=== PATIENT | male | born 1940 | race Caucasian/White ===

== ENCOUNTER 2017-03-12 06:46 | Inpatient (IN) ==
--- NOTE | 2017-03-07 14:08 | EKG Report ---
Stationary ECG Study [facility] Test Date: 03/07/2017 2:07:44 PM Pat Name: HANNAH BAIRD Department: Room: Gender: M Time Broker: SANDEEP 03-12-17 : 1940 Requested by: Zen Salazar Order Number: [id number] Reading MD: DARRIUS HENDRICKS Intervals [place] Rate: 63 P: 73 MA: 192 QRS: 73 QRSD: 91 T: 96 QT: 412 QTc: 419 Interpretive Statements SINUS RHYTHM WITH SINUS ARRHYTHMIA at 63 bpm LEFT VENTRICULAR HYPERTROPHY AND ST-T CHANGE Electronically Signed On 03-07-17 15:38:52 CDT by DARRIUS HENDRICKS [email or web address]
[2017-03-07 14:38] LABS: Basophils # 0.1 10*3/uL (0.0-0.2); Basophils % 0.7 % (0.0-0.8); Eosinophils # 0.1 10*3/uL (0.0-0.87); Eosinophils % 1.1 % (0.00-10.9); Hematocrit 40.9 VOL% (42.0-52.0); Hemoglobin 14.6 GM/DL (14.0-18.0); Immature Granulocytes % 0.3 %; Immature Granulocytes Absolute 0.03 #; Lymphocytes # 2.3 10*3/uL (1.4-4.0); Lymphocytes % 26.2 % (21.2-54.2); Mean Corpuscular HGB Conc 35.7 GM/DL (32-36); Mean Corpuscular Hemoglobin 32 PG (27-34); Mean Corpuscular Volume 90.5 FL (87-102); Mean Platelet Volume 9.6 FL (9.6-12.0); Monocytes # 0.8 10*3/uL (0.11-0.8); Monocytes % 9.1 % (1.7-12.7); Neutrophils # 5.5 10*3/uL (1.4-7.4); Neutrophils % 62.6 % (38.7-73.9); Platelet Count 216 T/CUMM (130-400); Red Blood Count 4.52 MC/CUMM (3.8-5.5); Red Cell Distribution Width 12.9 % (9.3-17.3); White Blood Count 8.8 T/CUMM (4-12)
[2017-03-07 15:09] LABS: Albumin 3.6 G/DL (3.4-5.0); Bilirubin,Total 0.4 MG/DL (0.2-1.0); Calcium 8.3 MG/DL (8.5-10.1); Osmolality,Calculated 287.8 MOS/KG (273-304); Potassium 3.5 MMOL/L (3.5-5.1); Total Protein 7.1 G/DL (6.4-8.3)
[~2017-03-12 06:46] MED LIST: HEPARIN 5,000 UNIT/1 ML VIAL ONE; SODIUM CHLORIDE 0.9% 100 ML IV ONE; TISSUE ADHESIVE 1 EACH APPLICATOR TOP ONE; VANCOMYCIN 500 MG VIAL ONE; ceFAZolin 1,000 MG VIAL ONE
[2017-03-12] MEDS: LACTATED RINGERS 1,000 ML IV SCH ×3 (07:48→14:03)
--- NOTE | 2017-03-12 08:14 | History and Physical Update ---
History and Physical Update - History and Physical H&P was reviewed, the patient examined and there: are no changes in the patients condition since last H&P was completed.
--- NOTE | 2017-03-12 09:04 | Cardiology Consult Note ---
Assessment and Plan (1) Preop cardiovascular exam Status: Acute Assessment and plan: 1. 76-year-old WM smoker (about 30 pack per day) with controlled hypertension and dyslipidemia (last LDL in the 50s October 2016), probable remote stroke ( poorly findings on CT brain in 2009 at the time of his left CVA in [place] by Dr. Alonso). He has had clear progression of his right carotid disease with 80 -99% stenosis on recent carotid Dopplers in the clinic and confirm severe disease on CTA. 2. We discussed his absolute need to stop all smoking semi-he has declined smoking cessation aids in the past. 3. History of low risk myocardial scan less than 4 years ago in the hospital when he was having chest pain; is not having angina at this time. 4. He is at moderate risk for cardiovascular complications in the perioperative period. However he is on antiplatelet therapy with baby aspirin as well as high intensity statin with LDL in the 50s. So he is on good medical therapy and is clinically stable from a cardiovascular standpoint. Given the critical stenosis in his carotid as well as his history of CVA, bleed would be important to proceed with correction of this with endarterectomy. 5. We will follow with you postoperatively. Current Visit: Yes (2) Carotid arterial disease Status: Acute Current Visit: Yes History of Present Illness - Consult Narrative History of present illness: Mr. Galaviz is a 76 year old male who I have followed since last fall and has significant carotid artery disease. He is status post left CVA about [address] Alonso. At that time he was told he had some evidence on his CAT scan of the brain that he had "an old stroke". He has had some "droop face " at times in the past. He is not having any chest discomfort at this time. He believes he can walk a mile if he takes his time. His dyspnea has not changed. He continues to smoke nearly half a pack a day. He is not having any presyncope or syncope. He does have occasional spontaneous dizziness of uncertain etiology. It occurs at rest is not severe. CC: Aaron Alejandra MD - Home Medications and Allergies Home Medications: Home Medications Medication Instructions Recorded Confirmed Type Aspirin/Caffeine [Bc Powder Packet] 1 each PO TID 03/07/17 03/12/17 History Atorvastatin [Lipitor] 40 mg PO DAILY 03/07/17 03/12/17 History Lisinopril 10 mg PO DAILY 03/07/17 03/12/17 History Omeprazole 20 mg PO DAILY 03/07/17 03/12/17 History Ubidecarenone [Co Q-10] 2 tablet PO DAILY 03/07/17 03/12/17 History Allergies/Adverse Reactions: Allergies Allergy/AdvReac Type Severity Reaction Status Date / Time No Known Allergies Allergy Verified 03/12/17 07:16 Medical,Surgical,& Family Hx - Medical History Cardio: History of: Hypertension, Cardiovascular Problems (DR HENDRICKS.LAST VISIT 11/2016.) Neurology: History of: TIA No history of: Seizures HEENT: History of: Ear Problem (UGASHIK), Eye Problem (GLASSES), Dental Problems ( CAPPED TEETH) Endocrine: History of: Dyslipidemia Respiratory: History of: COPD (NO INHALERS.) No history of: Respiratory Problems (FLU VAC-YES; PNEU VAC- YES.) Gastrointestinal: History of: GERD Other: History of: Anesthesia Reactions (PT STATES HE WAS HARD TO WAKE UP AFTER LEFT CAROTID SURGERY. ), Cancer (SKIN CA) - Surgical History Cardiac Surgeries: Sugical HX of: Cardiac Catheterization, Carotid Endarterectomy (LEFT CAROTID.) HEENT Surgeries: Surgical HX of: Carotid Endarterectomy (LEFT CAROTID.), Eye Surgery (BILATERAL CATARACT SX.), Tonsilectomy & Adenoidectomy Abdominal Surgeries: Surgical HX of: Colonoscopy - Social History Smoking Status: Current every day smoker Frequency of Alcohol Use: None Type of Drug Use: None Physical Examination Vital Signs Temp Pulse Resp BP Pulse Ox 97.3 F L 52 L 20 179/87 98 03/12/17 07:23 03/12/17 07:23 03/12/17 07:23 03/12/17 07:23 03/12/17 07:23 General: Present: Appears Well, No Apparent Distress Neck: Present: Supple Neck, No JVD/HJR, Bruit Cardiac: Present: Regular Rhythm. Absent: Diastolic Murmur, Gallop Lungs: Present: Scattered Rhonchi, No Wheezes, No Rales Neuro: Absent: Resting Tremor Abdomen: Present: Soft, Non-Tender Extremities: Absent: Edema Result/EKG - Labs CBC & BMP: 03/07/17 14:33 03/07/17 14:33
[2017-03-12] MEDS ORDERED: DOPamine 800 MG/250 ML PREMIX IV PRN (11:12)
[2017-03-12] MEDS ORDERED: HYDROmorphone 2 MG/1 ML VIAL IV PRN ×2 (11:12)
[2017-03-12] MEDS ORDERED: ONDANSETRON 4 MG/2 ML VIAL IV PRN (11:12)
[2017-03-12] MEDS ORDERED: GLUCAGON 1 MG VIAL IM PRN (11:12)
[2017-03-12] MEDS ORDERED: DEXTROSE 50% 25 GM/50 ML SYRINGE IV PRN (11:12)
[2017-03-12] MEDS ORDERED: NALOXONE 0.4 MG/ML VIAL IV PRN (11:12)
[2017-03-12] MEDS ORDERED: PROMETHAZINE 25 MG/1 ML VIAL IM PRN (11:12)
[2017-03-12] MEDS ORDERED: oxyCODONE/ACETAMINOPHEN 5-325 MG TABLET PO PRN ×2 (11:12)
--- NOTE | 2017-03-12 11:12 | Operative Note ---
Date of procedure: 03/12/17 Procedure: Dr. Alejandra operative report [facility] [place] [facility]. Surgeon: Justyn Anesthesia: Passed no general endotracheal Preoperative diagnosis: High-grade right internal carotid artery stenosis Postoperative diagnosis: Same Procedure: Right carotid endarterectomy with bovine pericardial patch Indications for the procedure Mr. Tovar is a 76-year-old man with a very high- grade stenosis with ulcerated plaque involving the right internal carotid artery I have offered a right carotid endarterectomy explaining the alternatives risks and complications which he understands and accepts Description of the procedure: After the induction of general endotracheal anesthesia the patient was placed in supine position his neck modestly extended and turned to the left to right neck is prepped with ChloraPrep and draped in the usual fashion began by making an incision in a skin crease below the angle of the mandible and carried this into the subplatysmal space I dissected along the anterior border of the sternocleidomastoid muscle identifying the internal jugular vein and the common carotid artery common carotid artery was controlled with a maxi vessel loop and the patient received 5000 units of intravenous heparin I continued dissecting along the common carotid past the diseased bifurcation to the more normal distal internal and external carotid arteries separately controlling the superior thyroid external and internal carotid arteries with small vessel loops. With adequate anticoagulation Vesseloops were brought up to control the artery a longitudinal arteriotomy was made from the common carotid through the diseased bifurcation to the more normal distal internal carotid artery the internal was back flushed and in-line [place] shunt was placed into the internal carotid artery allowed to backflush then placed into the common carotid to reestablish flow there was indeed significant ulcerated plaque involving the origin of the internal carotid artery standard endarterectomy was carried out removing the diseased intima and media from the bifurcation this feathered out very well on both the internal and external carotid arteries I dissected further proximally and distally to make sure I cleared the both ends of the endarterectomized segment flushed with heparinized saline and remove any loose bits of media under loupe magnification. Bovine pericardial patch was used to close the arteriotomy removing the shunt and appropriate time backflushing internal and external and flushing again with heparinized saline flow was reestablished from the common carotid into the external and then restored into the internal carotid artery heparin was partially reversed with 25 mg of protamine pressure was held for a bit to get good control of needle hole leakage there was excellent flow in the external and internal carotid arteries by Doppler hemostasis was good the neck was irrigated with vancomycin pledget of Surgicel was placed over the arteriotomy quarter inch [place] drain was used to close it to drain the incision incision was closed with 3-0 Vicryl on the platysma and skin clips on the skin blood loss is estimated at 100 250 cc sponge needle and his counts are correct and the patient is taken to recovery in stable condition Surgeon / Physician: Aaron Alejandra Results - Labs CBC & BMP: 03/07/17 14:33 03/07/17 14:33 Discharge Plan - Discharge Medications No Action Omeprazole 20 mg PO DAILY Atorvastatin [Lipitor] 40 mg PO DAILY Aspirin/Caffeine [Bc Powder Packet] 1 each PO TID Ubidecarenone [Co Q-10] 2 tablet PO DAILY Lisinopril 10 mg PO DAILY - Follow Up or Referral - Forms/Instructions
[2017-03-12] MEDS ORDERED: LISINOPRIL 10 MG TABLET PO SCH ×2 (11:30→21:00)
[2017-03-12] MEDS ORDERED: ATORVASTATIN 40 MG TABLET PO SCH ×2 (11:30→21:00)
[2017-03-12] MEDS ORDERED: fentaNYL 100 MCG/2 ML VIAL ONE (11:41)
[2017-03-12] MEDS ORDERED: SEVOFLURANE 1 UNIT/15 MINUTE INH ONE (11:41)
[2017-03-12] MEDS ORDERED: ePHEDrine 50 MG/ML AMP ONE (11:42)
[2017-03-12] MEDS ORDERED: ACETAMINOPHEN 1,000 MG/100 ML VIAL IV ONE (11:42)
[2017-03-12] MEDS ORDERED: PHENYLEPHRINE DRIP 20 MG/250 ML PREMIX IV ONE (11:42)
[2017-03-12] MEDS ORDERED: GLYCOPYRROLATE 0.4 MG/2 ML VIAL ONE (11:42)
[2017-03-12] MEDS ORDERED: PROTAMINE SULFATE 50 MG/5 ML VIAL IV ONE (12:14)
[2017-03-12] MEDS ORDERED: HEPARIN 10,000 UNIT/10 ML VIAL ONE (12:15)
--- NOTE | 2017-03-12 18:45 | Event Note ---
I was notified that there is a new consult in the ICU. I came to see the patient. 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 Solorzano has already seen him today. I saw examined and interviewed the patient. I refer to Dr. Solorzano's note.
--- NOTE | 2017-03-12 19:15 | Event Note ---
Mr. Tovar is awake alert oriented neurologically intact except for what may well be a mild marginal mandibular palsy associated with this carotid carotid endarterectomy. He has no significant hematoma vital signs look good good handgrip tongue is midline is complaining of a sore throat not swallowing well that should clear.
[2017-03-12] MEDS ORDERED: PHENOL 1.4% THROAT SPRAY 177 ML BOTTLE PO PRN (19:42)
[2017-03-13] MEDS: LACTATED RINGERS 1,000 ML IV SCH ×2 (01:26→07:19)
--- NOTE | 2017-03-13 07:14 | Cardiology Progress Note ---
Assessment and Plan - Time spent with patient Time spent with patient: Less than 30 minutes (1) Bradycardia Status: Acute Assessment and plan: No change at this time he is asymptomatic. Although low voltage P waves it appears to be sinus Current Visit: Yes (2) Hypertension Status: Chronic Assessment and plan: Adjust slowly postoperatively Current Visit: Yes Qualifiers: Hypertension type: essential hypertension Qualified Code(s): I10 - Essential (primary) hypertension (3) COPD (chronic obstructive pulmonary disease) Status: Chronic Current Visit: Yes Qualifiers: Emphysema type: centrilobular (4) Carotid arterial disease Status: Chronic Current Visit: Yes Qualifiers: Laterality: bilateral Qualified Code(s): I77.9 - Disorder of arteries and arterioles, unspecified Cardiology - PN: Subj Interval history: Mr. Galaviz is without complaint this morning. He looks quite good his telemetry overnight he has been sinus rhythm with sinus arrhythmia and occasional VPC. His blood pressure has been higher than long-term desirable but acceptable during the time around carotid endarterectomy. Will resume blood pressure medicines and adjust slowly once Dr. Alejandra feels it is acceptable to initiate this process. Being of course careful not to cause hypotension in the perioperative period. He moves all extremities and follows commands. I discussed with his in the waiting room in the ICU. Exam (Progress Note) - Constitutional Vitals: Period Temp Pulse Resp BP Sys/Alanis Pulse Ox Last 24 Hr 96.7 F-98.2 F 46-60 11-21 107-179/39-89 93-100 General appearance: normal weight - Head Head exam: Present: other (Surgical site looks good) - Eye Eye exam: Present: EOMI - Respiratory Respiratory exam: Present: rhonchi (Cough precipitated with deep inspiratory effort) - Cardiovascular Cardiovascular exam: Present: bradycardia - GI/Abdominal GI/Abdominal exam: Present: normal bowel sounds - Back Exam Back exam: Present: normal inspection - Neurological Exam Neurological exam: Present: alert, oriented X3 - Psychiatric Psychiatric exam: Present: normal affect, normal mood - Skin Skin exam: Present: normal color Result/EKG - Labs CBC & BMP: 03/07/17 14:33 03/07/17 14:33 Labs: Laboratory Results - last 24 hr 03/13/17 03:40 Troponin I 0.018 Quality Measures - VTE Contraindication to Pharmacological VTE Prophylaxis: High Risk of Bleeding
--- NOTE | 2017-03-13 07:40 | Event Note ---
Mr. Tovar is awake alert oriented neurologically intact except for marginal mandibular palsy and a mild hypoglossal palsy although the tongue sticks out straight. His neck looks good drain is removed blood pressures running little high but will resume his lisinopril I am adding aspirin and Plavix today soft diet regular diet as tolerated he should ambulate perhaps go home this afternoon
--- NOTE | 2017-03-13 07:56 | EKG Report ---
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
[2017-03-13] MEDS ORDERED: ASPIRIN EC 81 MG TABLET PO SCH (09:00)
[2017-03-13] MEDS ORDERED: PANTOPRAZOLE 40 MG TABLET PO SCH (09:00)
[2017-03-13] MEDS ORDERED: CLOPIDOGREL 75 MG TABLET PO SCH (09:00)
[2017-03-13] MEDS ORDERED: COENZYME Q10 100 MG CAPSULE PO SCH (09:00)
--- NOTE | 2017-03-13 11:13 | Anesthesia Post-Op ---
Anesthesia Post OP - Post Ansesthetic Evaluation Patient seen in post op: Yes Resp: within normal limits CV: within normal limits Mental: within normal limits Temp: within normal limits [id number]: within normal limits Nausea and Vomiting: within normal limits Pain: within normal limits
[2017-03-13 12:49] VITALS: BP 165/64
--- NOTE | 2017-03-13 16:37 | Discharge Summary ---
Hospital Course - Hospital Course Hospital Course: Mr. Cedeño was admitted with a high-grade right internal carotid artery stenosis and underwent a right carotid endarterectomy yesterday. He is doing well he is awake alert oriented neurologically intact except for mild marginal mandibular palsy and possibly a mild hypoglossal palsy although the nerve was not divided and the tongue remains midline. He is tolerating a diet ambulatory has no hematoma and doing well he is ready for discharge will resume lisinopril and close every 10 he takes bases regularly and I have advised him of the risks of that as far as peptic ulcer disease but did advise him to take at least 81 mg aspirin and 131 BC a day would be all right. I am going to add Plavix 75 mg daily for approximately 2 months. I will see him in office next week for staple removal I have advised him with his present a wound care exercise restrictions diet and expected recovery he did not wish any opioid pain relievers Specialty Discharge - Follow Up or Referrals Follow up with: Aaron Alejandra MD [Physician] - 03/20/17 2:45 pm ([facility]. WITH IN ONE WEEK. MARCH 20 @ 2:45) Discharge Plan - Discharge Data Disposition: Disch To Home/Self Care Condition at Discharge: Stable Discharge Diet: advance to your usual diet Activity: resume usual activities as tolerated Hygiene: may shower Weight Bearing at Discharge: full weight bearing Driving: not until seen by doctor Contact your physician if you experience:: Redness or swelling, Bleeding - Discharge Medications New Clopidogrel [Plavix] 75 mg PO DAILY #60 tablet Phenol 1.4% Throat [place] [Chloraseptic [place]] 5 spray PO Q2H PRN bottle PRN Reason: Sore Throat Aspirin EC Tab 81 mg PO DAILY tablet Continue Omeprazole 20 mg PO DAILY Atorvastatin [Lipitor] 40 mg PO DAILY Ubidecarenone [Co Q-10] 2 tablet PO DAILY Lisinopril 10 mg PO DAILY Discontinued Aspirin/Caffeine [Bc Powder Packet] 1 each PO TID - Follow Up or Referral Follow Up: Aaron Alejandra MD [Physician] - 03/20/17 2:45 pm ([facility]. WITH IN ONE WEEK. MARCH 20 @ 2:45) - Forms/Instructions Exam - Constitutional Vitals: Period Temp Pulse Resp BP Sys/Alanis Pulse Ox Last 24 Hr 98 F-100.1 F 46-73 11-21 138-171/47-89 91-100 Discharge Results Procedures and tests throughout hospitalization: Pending Orders 03/12/17 12:15 MRSA Surveillence, Inf Control Stat Labs on day of discharge: Labs from last 24 hours 03/13/17 03:40 Troponin I 0.018 Preliminary micro results at discharge 03/12/17 12:15 MRSA Surveillance Culture - Preliminary Nares No MRSA isolated. DS: Provider Date of admission: 03/12/17 06:46 Primary care physician: Manuel Milan DO Attending physician on admission: Aaron Alejandra MD Consults: 03/12/17 12:53 Consult to Physician [CONS] Routine Comment: Consulting Provider: Santos Solorzano Consulting Provider Notified: Yes When should Consulting Provider be notified: Now Consult to Specialist Group: Cardiology Person Notified: Gabby Date Notified: 03/12/17 Time Notified: 12:55 Discharging clinician: Aaron Alejandra MD
--- NOTE | 2017-03-13 18:24 | Pathology Report from [facility] ---
[facility] ACCESSION # : [id number] PATIENT NAME : Bravo Oreilly ORDERING DR : JUAN TRIANA MD CLINICAL HX: Right carotid stenosis POST-OP DX: Same SPECIMEN INFO: Right carotid plaque GROSS DESCRIPTION: The specimen is received in formalin labeled with the patients name and consists of an endarterectomy measuring 3.8 x 1.0 cm in aggregate. A dental detail representative section submitted in one cassette following decalcification. DIAGNOSIS FOR BRAVO OREILLY: RIGHT CAROTID PLAQUE, ENDARTERECTOMY: Calcified atheromatous plaque. COLLECTED DATE: 03/12/2017 [facility] REPORT DATE: 03/13/2017 ELECTRONICALLY SIGNED BY: Canelo Hines M.D. 03/13/2017 - 9:58:21 [facility]ENTERMargot
== END 2017-03-13 17:35 | disposition home or self-care (01) | DRG 39 ==
LOC: N.SDSINP 06:46 → N.ICU 12:06 → N.3E 03-13 15:18
PROVIDERS: ADMIT Surgery; ATTEND Surgery